=== PATIENT | male | born 1980 | race Caucasian/White ===

== ENCOUNTER → 2021-09-19 08:16 | Outpatient (CLI) | payer OTHER, SELFPAY ==
[2021-09-19 09:00] LABS: COVID19 -Nasal RAPID Negative (Negative)
== END ==
PROVIDERS: Visit Provider Nurse Practitioner Family
DX: Z20.822 Contact with and (suspected) exposure to COVID-19 (principal); J02.9 Acute pharyngitis, unspecified
CPT/HCPCS: 87070; 87635